=== PATIENT | male | born 1990 | race Caucasian/White ===

== ENCOUNTER 2023-11-17 22:35 | Emergency (ER) | payer OTHER, SELFPAY ==
[2023-11-17 22:36] VITALS: BP 141/98
[2023-11-17 22:50] VITALS: BP 138/97
[2023-11-17 23:00] VITALS: BP 128/90
--- NOTE | 2023-11-17 23:06 | ED.GENMED ---
History of Present Illness
General
Chief Complaint: Chest Pain
Source: patient
Exam Limitations: none
Time Seen by Provider: 11/17/23 22:41
History of Present Illness
History of Present Illness:
This is a 33 year old male that comes in with c/o chest pain. State that he started yesterday with some left sided chest pain. States that it would come and go. Then tonight he started with left sided chest pain that went up into his neck and the
left shoulder blade. States that he was nauseated, has a headache, lightheaded when he got up and had some SOB when he got out of the shower. Denies any fever, chills, abd pain, vomiting, diarrhea, urinary burning.
Past History
Past History
ED Past Medical History: GERD
ED Past Surgical History: None
Social History
Tobacco: Non-smoker
Alcohol: None
Personal:
Living: with family
Employment: Employed
Review of Systems
Review of Systems
All Other Systems: ROS reviewed and negative except as documented in HPI and ROS
Constitutional: Reports no symptoms; Denies fever or chills
EENT: Reports no symptoms
Respiratory: Reports trouble breathing; Denies cough
Cardiac: Reports chest pain
ABD/GI: Reports nausea; Denies abdominal pain, vomiting or diarrhea
: Reports no symptoms; Denies dysuria, frequency or urgency
Musculoskeletal: Reports no symptoms
Skin: Reports no symptoms
Neurological: Reports headache and other (Lightheaded)
Psychiatric: Reports no symptoms
Phy Exam
General Physical Exam
General Presentation: no apparent distress
General age: appears stated age
General Skin: diaphoretic
General Habitus: normal
General Mental: alert
General Hydration: appears well hydrated
ENT Exam
ENT Exam: TM's normal, pharynx normal and neck supple
Eye Exam
Eye Exam: EOMI
Cardiovascular Exam
Cardiovascular Exam: regular rate/rhythm, no edema, no murmur and normal peripheral pulses
Pulmonary Exam
Pulmonary Exam: lungs clear, no respiratory distress, no rales, chest non tender, no crackles, no rhonchi, no wheezing and no cough
Gastrointestinal Exam
Gastrointestinal Exam: normal bowel sounds, non tender, soft, no organomegaly, no pulsatile mass and non distended
Musculoskeletal Exam
Musculoskeletal Exam: full ROM and no edema
Skin Exam
Skin Exam: normal color, no rash, no petechia and diaphoresis
Psychiatric Exam
Psychiatric Exam: anxious
Scores
Heart Score for Chest Pain Patients
STEMI patient?: No
History: Slightly or Non-Suspicious
ECG: Normal
Age: </= 45 years
Risk Factors: No Risk Factors
Troponin: </= Normal Limit
Heart Score for Chest Pain Patients: 0
Heart Score Risk: 2.5% MACE over next 6 weeks
Course
Orders/Labs/Results
Orders:
Orders
11/17/23 22:38
Electrocardiogram (*1) Urgent
Reason for Study: Chest Pain
EKG- Treatment ONCE
11/17/23 23:05
CR Chest - 2 Views Urgent
Comment:
Reason For Exam: Chest pain
11/17/23 23:06
Ketorolac [Toradol] 30 mg IV NOW STA
Ondansetron Injectable [Zofran] 4 mg IV NOW STA
Pantoprazole [Protonix IV] 40 mg IV NOW STA
11/17/23 23:35
Complete Blood Count/With Diff Urgent
Comprehensive Metabolic Panel Urgent
Troponin I Urgent
11/18/23 00:41
EKG- Treatment ONCE
11/18/23 02:12
Troponin I Urgent
11/18/23 02:35
Electrocardiogram (*1) Urgent
Reason for Study: Chest Pain
Other Reason for Exam: Repeat with Troponin
Abnormal Lab Results
11/17/23
23:35
MCV 79.2 L fL
(80.0-94.0)
Absolute Monos (auto) 0.7 H 10^3/uL
(0.1-0.6)
Glucose 105 H mg/dl
(70-99)
11/17/23 23:35
11/17/23 23:35
Glucose nonfasting. Troponin <0.012
Vital Signs
Initial and Last Documented VS:
Initial Vital Signs
Temp Pulse Resp BP Pulse Ox
98.3 F 81 18 141/98 97
11/17/23 22:36 11/17/23 22:36 11/17/23 22:36 11/17/23 22:36 11/17/23 22:36
Last Documented Vital Signs
Temp Pulse Resp BP Pulse Ox
98.2 F 67 18 123/95 98
11/18/23 01:15 11/18/23 02:29 11/18/23 02:29 11/18/23 02:29 11/18/23 02:29
MDM/Problems Addressed
Differential Diagnosis Includes:
Coronary syndrome. Musculoskeletal pain.
MDM/Problems Addressed:
This is a 33 year old male that comes in with c/o left sided chest pain that went up into his neck and the shoulder. States that this started yesterday and would come and go and then he started with pain tonight.
Will get labs. Chest, ECG and medicate for pain.
Repeat ECG Rate 66, NSR, Normal axis. QRS normal. Negative for ischemia.
Back into see patient. Explained that his chest x-ray is normal along with his blood work. This is most likely musculoskeletal. Will repeat Troponin and if normal will dischrage patient home. Patient to follow up with the family doctor for further
evaluation. Patient can use Tylenol and ibuprofen for any pain. Ice or heat to any area that is sore. Return with any concerns.
Chronic conditions affecting care:
NA
Acute Exacerbation and/or Progression of Chronic Illness:
NA
*Radiology
Radiology exam reviewed: preliminary read by ED provider (Chest- Negative for active disease. )
*EKG
Interpreted by ED Provider?: Yes
Heart Rate: 71
Rate: normal
Rhythm: sinus arrhythmia
[place]: normal axis
Interval: normal interval
QRS Pattern: normal QRS
Ischemia: no ischemia
*Otr Owner Operator Interpretation
Rate: normal
Heart Rate: 86
*Critical Care Note
Total Time (30-74mins, 75-104mins- exclusive of procedures): Not Applicable
ED Attending Note
-
Portions of this chart may have been created with voice recognition software.� Occasional wrong word or��sound alike� substitutions may have occurred due to the inherent limitations of voice recognition software.
Discharge Plan
Departure
Patient Disposition: Home (Routine Discharge)
Date of Disposition: 11/18/23
Time of Disposition: 02:54
Patient with high blood pressure during this ER visit?: Yes
Condition: Good
Covid-19: Not Applicable
Discharge Problem:
Chest pain, Musculoskeletal chest pain
Instructions: Chest Pain PCP Follow Up, BLOOD PRESSURE, Musculoskeletal Pain
Prescriptions:
No Action
famotidine
40 mg PO BID
Referrals:
PRIVATE,PHYSICIAN [Family Provider] -
Activity Restrictions/Additional Instructions:
As discussed, your blood work is normal along with your ECG. Please follow up with the family doctor for recheck. You may use Tylenol or Ibuprofen for pain. Ice or heat to any area that is sore. IF YOU HAVE INCREASED OR CHANGING PAIN, OR YOU HAVE
ANY OTHER CONCERNS PLEASE RETURN TO THE EMERGENCY ROOM.
Interventions
Interventions:
*Risk Screen - Suicide Last Done: 11/17/23 22:36
*General Assessment Last Done: 11/17/23 22:36
*Neglect/Abuse Screening Last Done: 11/17/23 22:36
ED- Fall Risk Assessment Last Done: 11/18/23 01:18
ED- Cardiac Assessment Last Done: 11/18/23 01:18
Discharge Date and Time
Print Language: LAO
[2023-11-17] MEDS: TORADOL 30 MG IV (23:32)
[2023-11-17] MEDS: PROTONIX IV 40 MG IV (23:32)
[2023-11-17 23:57] LABS: ALT (SGPT) 33 U/L (0-50); AST (SGOT) 28 U/L (17-59); Albumin 4.9 g/dl (3.5-5.0); Alkaline Phosphatase 62 U/L (38-126); Blood Urea Nitrogen 16 mg/dl (9-20); Calcium 9.9 mg/dl (8.4-10.2); Carbon Dioxide 25 mmol/L (22-30); Chloride 103 mmol/L (98-107); Glucose 105 mg/dl (70-99); Potassium 4.3 mmol/L (3.5-5.1); Sodium 137 mmol/L (135-145); Total Bilirubin 0.5 mg/dl (0.2-1.3); Total Protein 7.5 g/dl (6.3-8.2); eGFR > 60.00
[2023-11-18] VITALS: BP 119/87
[2023-11-18 00:11] LABS: Troponin I 0.013 ng/ml
[2023-11-18 00:44] LABS: % Basophils 0.6 % (0-2); % Eosinophils 1.6 % (0-6); % Immature Granulocytes 0.4 % (0-0.5); % Lymphocytes 25.9 % (20.5-51.1); % Monocytes 7.7 % (1.7-9.3); % Neutrophils 63.8 % (42.2-75.2); Absolute Basophils 0.1 10^3/uL (0-0.2); Absolute Eosinophils 0.1 10^3/uL (0-0.7); Absolute Lymphocytes 2.3 10^3/uL (1.2-3.4); Absolute Monocytes 0.7 10^3/uL (0.1-0.6); Absolute Neutrophils 5.7 10^3/uL (1.4-6.5); Hematocrit 43.3 % (39.0-52.0); Hemoglobin 15.3 g/dL (13.0-18.0); Mean Corp Hgb Conc. 35.3 g/dL (33.0-37.0); Mean Corpuscular Volume 79.2 fL (80.0-94.0); Nucleated Red Blood Cells % 0 % (-); Platelet Count 257 10^3/uL (130-400); Red Blood Cell Count 5.47 10^6/uL (4.70-6.10); Red Cell Dist. Width 13.3 % (11.5-14.5); White Blood Cell Count 8.9 10^3/uL (4.8-10.8)
[2023-11-18 01:15] VITALS: BP 122/83
[2023-11-18 01:17] VITALS: BMI 30.6
[2023-11-18 02:29] VITALS: BP 123/95
[2023-11-18 03:26] LABS: Troponin I < 0.012 ng/ml
[2023-11-18 03:32] VITALS: BP 135/87
== END 2023-11-18 03:36 | disposition home or self-care (01) ==
LOC: EMR 22:35
PROVIDERS: Clinical Nurse Specialist Family Health; EMERGENCY PHYSICIAN Student in an Organized Health Care Education/Training Program
DX: R07.89 Other chest pain (principal); R03.0 Elevated blood-pressure reading, without diagnosis of hypertension
CPT/HCPCS: 99284; 96374; 96375; 71046; 80053; 84484; 85025; 93005

== ENCOUNTER 2025-01-18 08:22 | Emergency (ER) | payer OTHER, SELFPAY ==
[2025-01-18 08:23] VITALS: BP 134/92
[2025-01-18 08:47] VITALS: BMI 28.9
--- NOTE | 2025-01-18 08:53 | ED.GENMED ---
History of Present Illness
General
Chief Complaint: Chest Pain
Time Seen by Provider: 01/18/25 08:34
History of Present Illness
History of Present Illness:
FOCUSED PAST MEDICAL HISTORY
- GERD, insomnia
REVIEW OF OLD RECORDS
- I reviewed records, the patient had an evaluation for chest pain in October 2023 and had negative troponins at that time
Note:
CHIEF COMPLAINT(S)
Intermittent chest pain, dizziness, and lightheadedness.
HISTORY OF PRESENT ILLNESS
The patient is a 34-year-old male with a history of gastroesophageal reflux disease (GERD) for the past eight years, managed with xvpy-ldx-[id number] ranitidine at a dosage of 80 mg per day (40 mg in the morning and 40 mg at night). The patient
presented with chest pain that commenced on the previous Tuesday night. The pain awakened him from sleep, described as a 'stabbing' sensation primarily located just left of the sternum. The intensity of the pain was significant, causing discomfort
for about 45 minutes before the patient was able to return to sleep. Throughout the following day, the patient experienced intermittent episodes of similar chest pain.
On the day prior to the visit, the patient awoke with chest pain, accompanied by dizziness and lightheadedness around midday. This prompted the patient�s spouse to recommend seeking medical attention, which the patient agreed to do the following
morning. The chest pain has been episodic, not constant, since onset and does not intensify upon palpation of the chest wall. Additionally, the patient reports occasional associated abdominal pain in two distinct areas, one of which aligns with the
nipple line.
The emergency department physician suggested a cardiac evaluation, including cardiac blood work and a chest X-ray, to rule out any cardiac origin, although the physician expressed doubt regarding a myocardial event. A short-term course of omeprazole
was advised as well, given the recurrent gastrointestinal symptoms.
PAST MEDICAL AND SURGICAL HISTORY
History of gastroesophageal reflux disease (GERD).
SOCIAL DETERMINANTS AFFECTING HEALTH
The patient has not expressed difficulty in procuring covh-rng-hhpuvgc GERD medication, implying no immediate financial barriers mentioned.
REVIEW OF SYSTEMS
- Cardiovascular: Intermittent stabbing chest pain.
- Gastrointestinal: History of GERD, associated abdominal discomfort.
- Neurological: Episodes of dizziness and lightheadedness.
PHYSICAL EXAM
General: Alert, no acute distress.
Skin: Warm, dry.
Head: Normocephalic, atraumatic.
Neck: Supple, trachea midline.
Eyes, Ears, Nose, Mouth and Throat: Oral mucosa moist.
Cardiovascular: Normal peripheral perfusion, No edema. There is no significant chest wall tenderness
Respiratory: Respirations are non-labored.
Gastrointestinal: Abdomen nondistended.
Back: Normal range of motion, Normal alignment.
Musculoskeletal: Normal range of motion, normal strength.
Neurological: Alert and oriented to person, place, time, and situation, No focal neurological deficit observed.
Psychiatric: Cooperative, appropriate mood & affect.
PLAN
- Obtain cardiac blood work to rule out cardiac causes.
- Perform a chest X-ray to assess for possible cardiac or pulmonary causes of chest pain.
- Initiate a two-week course of loec-irh-qsifzps omeprazole.
- Advise intermittent use of Motrin, taking care to avoid potential gastrointestinal irritation.
DIFFERENTIAL DIAGNOSIS
The Differential Diagnosis includes, in no particular order and is not limited to:
1. Gastroesophageal reflux disease
2. Costochondritis
3. Myocardial ischemia
4. Peptic ulcer disease
5. Gallbladder disease
6. Esophageal spasm
7. Non-cardiac chest pain
8. Anxiety-related chest pain
9. Musculoskeletal pain
10. Pneumothorax
RADIOLOGY
- Chest x-ray obtained
EKG
- Sinus 71, normal axis, no acute abnormality, no change from 11/18/2023
LABS
- CBC, chemistries, troponin normal
UPDATE
-SUMMARY OF ENCOUNTER
The patient, a 34-year-old male, presented to the emergency department with intermittent chest pain, dizziness, and lightheadedness. His medical history includes gastroesophageal reflux disease (GERD), high cholesterol, and slightly elevated blood
pressure. The patient does not currently take any blood pressure medication. Cardiac blood work was performed and returned normal. An independent interpretation of the chest x-ray was conducted and appeared normal. The patients symptoms may be
related to musculoskeletal chest wall pain or GERD. A short course of omeprazole was recommended, and the patient is safe for discharge with outpatient management.
DISPOSITION
Discharge
ASSESSMENT
Likely musculoskeletal chest wall pain or GERD-related symptoms.
PLAN
- Prescribe a two-week course of pfpj-xbw-pdjrjgp omeprazole for potential GERD.
- Recommend follow-up with a copper plater, Dr. Garcia from [facility], possibly for a stress test evaluation.
- Advise monitoring blood pressure at home and consider cardiology follow-up due to history of high cholesterol and slightly elevated blood pressure.
INDEPENDENT REVIEW OF LABS AND INTERPRETATION OF TESTS
- My independent review of the cardiac blood work is normal.
- My independent chest x-ray interpretation is normal.
PATIENT EDUCATION AND COUNSELING
The patient was informed about the possible musculoskeletal or GERD-related causes of his chest pain. The importance of monitoring blood pressure regularly and following up with a copper plater was discussed.
FOLLOW-UP INSTRUCTIONS
The patient was advised to follow up with a copper plater, specifically Dr. Garcia from [facility], for further evaluation, including possibly a stress test.
MEDICATION RECONCILIATION
- Omeprazole, [id number]-odx-daqhhpv, prescribed for a short-term course.
MEDICAL DECISION MAKING
- Number and Complexity of Problems Addressed: Chronic conditions affecting care include GERD, high cholesterol, and slightly elevated blood pressure. Differential Diagnosis includes: Gastroesophageal reflux disease, Costochondritis, Myocardial
ischemia, Peptic ulcer disease, Gallbladder disease, Esophageal spasm, Non-cardiac chest pain, Anxiety-related chest pain, Musculoskeletal pain, Pneumothorax.
- Data:
Category 1: My independent interpretation of the chest x-ray is normal. Cardiac blood work reviewed and found to be normal.
Category 3: Discussion of management with other physician regarding outpatient follow-up with a copper plater.
- Risk: Consideration of Admission/Observation: Escalation of care, including admission/observation, was considered given the complexity and risk of the patients presenting complaint, exam findings, and underlying comorbidities. However, ultimately
the patient is deemed safe for outpatient management with close follow-up due to reassuring work-up, stable vitals, and controlled symptoms.
DIAGNOSIS
- GERD (Gastroesophageal reflux disease) - ICD-10: K21.9
- Chest wall pain - ICD-10: R07.89
Consider repeat troponin however the patient has been ongoing for the past 7 days without worsening today and no exertional symptoms with normal EKG and low heart score
Past History
Past History
ED Past Medical History: GERD
ED Past Surgical History: None
Social History
Tobacco: Non-smoker
Alcohol: None
Personal:
Living: with family
Employment: Employed
Phy Exam
Physical Exam
Physical Exam:
See HPI
Scores
Heart Score for Chest Pain Patients
STEMI patient?: Not applicable
Course
Orders/Labs/Results
Orders:
Orders
01/18/25 08:26
Electrocardiogram (*1) Urgent
Reason for Study: Chest Pain
EKG- Treatment ONCE
01/18/25 08:45
Complete Blood Count/With Diff Urgent
Comprehensive Metabolic Panel Urgent
Lipase Urgent
Troponin I Urgent
01/18/25 09:01
CR Chest - 2 Views Urgent
Comment:
Reason For Exam: L ACW CP
01/18/25 08:45
01/18/25 08:45
Vital Signs
Initial and Last Documented VS:
Initial Vital Signs
Temp Pulse Resp BP Pulse Ox
36.9 C 77 18 134/92 95
01/18/25 08:23 01/18/25 08:23 01/18/25 08:23 01/18/25 08:23 01/18/25 08:23
Last Documented Vital Signs
Temp Pulse Resp BP Pulse Ox
36.9 C 77 18 134/92 95
01/18/25 08:23 01/18/25 08:23 01/18/25 08:23 01/18/25 08:23 01/18/25 08:55
*Pulse Oximetry
SaO2: 95
Oxygen Mode of Delivery: Room air
Patient hypoxic: no
*Critical Care Note
Total Time (30-74mins, 75-104mins- exclusive of procedures): Not Applicable
ED Attending Note
-
Portions of this chart may have been created with voice recognition software.� Occasional wrong word or��sound alike� substitutions may have occurred due to the inherent limitations of voice recognition software.
Discharge Plan
Departure
Patient Disposition: Home (Routine Discharge)
Date of Disposition: 01/18/25
Time of Disposition: 09:48
Patient with high blood pressure during this ER visit?: Yes
Discharge Problem:
Chest pain
Instructions: Chest Pain PCP Follow Up, BLOOD PRESSURE
Prescriptions:
No Action
famotidine
40 mg PO BID
Referrals:
Hoang Zapata MD [Active, Cardiology]
Jelani Briseno MD [Family Provider, Internal Medicine]
Activity Restrictions/Additional Instructions:
I recommend that you follow-up with your primary care doctor. EKG and cardiac blood work are normal. However, I have also given you the contact information for a local copper plater that you could try following up with as well. Somebody from their
office may call you to arrange close follow-up. Continue the famotidine but I also recommend he take a 2-week course of zqyv-qrh-znhndzi omeprazole.
Interventions
Interventions:
*Risk Screen - Suicide Last Done: 01/18/25 08:23
*General Assessment Last Done: 01/18/25 08:23
*Neglect/Abuse Screening Last Done: 01/18/25 08:23
*ED- Fall Risk Assessment Last Done: 01/18/25 08:48
*ED COVID-19 Vaccine History Last Done: 01/18/25 08:48
ED- Cardiac Assessment Last Done: 01/18/25 08:48
Discharge Date and Time
Print Language: MOHAWK
[2025-01-18 08:58] LABS: Hematocrit 44.4 % (39.0-52.0); Hemoglobin 14.8 g/dL (13.0-18.0); Mean Corp Hgb Conc. 33.3 g/dL (33.0-37.0); Mean Corpuscular Volume 82.5 fL (80.0-94.0); Nucleated Red Blood Cells % 0 % (-); Platelet Count 226 10^3/uL (130-400); Red Cell Dist. Width 13.3 % (11.5-14.5)
[2025-01-18 09:00] VITALS: BP 135/89
[2025-01-18 09:10] LABS: ALT (SGPT) 29 U/L (0-50); AST (SGOT) 25 U/L (17-59); Albumin 4.8 g/dl (3.5-5.0); Alkaline Phosphatase 43 U/L (38-126); Blood Urea Nitrogen 19 mg/dl (9-20); Calcium 9.7 mg/dl (8.4-10.2); Carbon Dioxide 28 mmol/L (22-30); Chloride 107 mmol/L (98-107); Estimated Creatinine Clearance 108 ml/min; Glucose 94 mg/dl (70-99); Lipase 44 U/L (23-300); Potassium 4.7 mmol/L (3.5-5.1); Sodium 140 mmol/L (135-145); Total Protein 7.3 g/dl (6.3-8.2); eGFR > 60.00
[2025-01-18 09:22] LABS: Troponin I < 0.012 ng/ml
[2025-01-18 09:54] VITALS: BP 125/87
== END 2025-01-18 10:10 | disposition home or self-care (01) ==
LOC: EMR 08:22
PROVIDERS: EMERGENCY PHYSICIAN Emergency Medicine; FAMILY PHYSICIAN Internal Medicine
DX: R07.89 Other chest pain (principal); K21.9 Gastro-esophageal reflux disease without esophagitis; G47.00 Insomnia, unspecified
CPT/HCPCS: 99283; 71046; 80053; 83690; 84484; 85025; 93005